=== PATIENT | male | born 1935 | race Caucasian/White ===

== ENCOUNTER 2018-12-25 10:43 | Day surgery (SDC) | payer MEDICARE ==
[~2018-12-25] VITALS: Ht 190.5 cm; Wt 126.0 kg
[2018-12-25 11:24] VITALS: BP 153/75
[2018-12-25] MEDS ORDERED: LACTATED RINGERS 1,000 ML IV SCH (11:26)
[2018-12-25] MEDS ORDERED: PLEASE ENTER ALLERGIES MC SCH (11:30)
[2018-12-25] MEDS ORDERED: ASPI81TA45 PO (11:31)
[2018-12-25] MEDS ORDERED: CARV3.1212 PO (11:31)
[2018-12-25] MEDS ORDERED: [UNRECOGNIZED DRUG - CODE] PO (11:31)
[2018-12-25] MEDS ORDERED: [UNRECOGNIZED DRUG - CODE] TP (11:31)
[2018-12-25] MEDS ORDERED: IBUP-1223 PO (11:31)
[2018-12-25] MEDS ORDERED: CITA20TA6 PO (11:31)
[2018-12-25] MEDS ORDERED: ATOR40TA PO (11:31)
[2018-12-25] MEDS ORDERED: TAMS-11 PO (11:31)
[2018-12-25] MEDS ORDERED: GABA300C PO (11:31)
[2018-12-25] MEDS ORDERED: CLOT10TR TP (11:31)
[2018-12-25] MEDS ORDERED: LIDOCAINE-MPF 1%, 2ML ONE (11:48)
[2018-12-25] MEDS ORDERED: DEXAMETHASONE 4 MG/ML, 1ML ONE (12:30)
[2018-12-25] MEDS ORDERED: PROPOFOL 10 MG/ML, 20ML ONE (12:30)
[2018-12-25] MEDS ORDERED: MIDAZOLAM 1 MG/ML, 2ML ONE (12:34)
== END 2018-12-25 14:45 | disposition home or self-care (01) ==
LOC: OUT 10:43
PROVIDERS: ATTEND Internal Medicine Gastroenterology
DX: D12.3 Benign neoplasm of transverse colon (principal); K57.30 Diverticulosis of large intestine without perforation or abscess without bleeding; K64.0 First degree hemorrhoids; K64.4 Residual hemorrhoidal skin tags; F32.9 Major depressive disorder, single episode, unspecified; E78.5 Hyperlipidemia, unspecified; I10 Essential (primary) hypertension; F15.90 Other stimulant use, unspecified, uncomplicated; E66.9 Obesity, unspecified; Z68.39 Body mass index [BMI] 39.0-39.9, adult; Z98.52 Vasectomy status; Z80.0 Family history of malignant neoplasm of digestive organs; Z88.6 Allergy status to analgesic agent; Z88.1 Allergy status to other antibiotic agents
CPT/HCPCS: 45380; 88305; 93005; J1100; J2250; J2704